=== PATIENT | male | born 1980 | race Caucasian/White ===

== ENCOUNTER 2020-01-13 14:53 | Outpatient (CLI) | payer BC, SELFPAY ==
--- NOTE | 2020-01-13 | XR_ITS ---
WS: [id number] RIGHT SHOULDER: 3 VIEW(S) TECHNIQUE: Internal and external rotation with Y view. Axillary view. HISTORY: SHOULDER ARTHRITIS COMPARISON: 11/18/2004 Prior RIGHT humeral head prosthesis placement. No lucency or fracture. Irregularity along the glenoid . Mild AC joint arthritis. No prior radiographs for comparison. XR/XR shoulder RT min 2V* [id number] IMPRESSION: Status post RIGHT humeral head prosthesis with no apparent complications. There are no prior radiographs for comparison.
== END 2020-01-13 14:54 | disposition home or self-care (01) ==
LOC: RAD 14:57
PROVIDERS: Family Provider Family Medicine; Visit Provider Orthopaedic Surgery Orthopaedic Surgery of the Spine
DX: M19.011 Primary osteoarthritis, right shoulder (principal); R20.0 Anesthesia of skin; R20.2 Paresthesia of skin
CPT/HCPCS: 73030

== ENCOUNTER → 2020-02-02 15:27 | Outpatient (BNVA) | payer BC, SELFPAY | DX: G56.21 Lesion of ulnar nerve, right upper limb (principal) | CPT/HCPCS: 95908 ==

== ENCOUNTER 2020-04-16 14:20 | Outpatient (CLI) | payer BC, SELFPAY ==
--- NOTE | 2020-04-16 14:31 | XR_ITS ---
WS: [id number] Left foot, 3 views, 04/16/2020 Clinical Data: Acute heel pain inversion injury Comparison: None. Findings: No fractures or dislocations are seen. No bone destruction or erosion is noted. The joint spaces and soft tissues are normal. The calcaneus is normal. XR/XR foot LT min 3V* [id number] Impression: Negative left foot.
== END 2020-04-16 14:21 | disposition home or self-care (01) ==
LOC: RADWPI 14:22
PROVIDERS: Family Provider Family Medicine; PCP Family Medicine; Visit Provider Podiatrist Foot & Ankle Surgery
DX: M79.672 Pain in left foot (principal)
CPT/HCPCS: 73630

== ENCOUNTER 2020-05-27 20:20 | Emergency (ER) | payer BC, SELFPAY ==
[2020-05-27 20:20] VITALS: TEMP 38.1
[2020-05-27 20:28] VITALS: BP 138/91; PULSE 99; RESP 18; O2SAT 98; BMI 28.2
--- NOTE | 2020-05-27 20:44 | XR_ITS ---
WS: [id number] Portable AP upright chest, 05/27/2020 Clinical Data: COVID+, cough, fever Comparison: Portable chest, 09/08/2015. Findings: No nodules, masses or effusions are seen. The heart is normal. The pulmonary vascularity is not increased. No pneumonia or pneumothorax is seen. There is a total right shoulder prosthesis. XR/XR chest 1V portable [id number] Impression: Negative chest.
--- NOTE | 2020-05-27 20:47 | W.ED.GENADLT ---
HPI - General Adult General: Chief complaint: General Medical Stated complaint: COVID +/COUGH/SOB Time Seen by Provider: 05/27/20 20:34 Source: patient Mode of arrival: ambulatory History of Present Illness: HPI narrative: Patient is a 40-year-old male who started feeling ill about 1 week ago. The day after he started feeling sick he got tested at his primary care provider's office for COVID-19 and he returned positive. He has been monitoring himself at home and his pulse oxygenation has been above 95. He has however been coughing continuously, has had a persistent fever of around 101, and just feels generally unwell. He wants to make sure that he does not have the pneumonia. MD complaint: Cough, Onset (ago): week(s) (1) Relieving factors: none Exacerbating factors: none Associated symptoms: Reports cough, dyspnea (Mild), fevers/chills, malaise and short of breath; Deny chest pain, confusion, diaphoresis, decreased appetite, headache(s), nausea, rash, palpitations, seizures, syncope, vomiting, weakness or other Treatments prior to arrival: NSAID Review of Systems General: Reports: 10 or more systems reviewed and unremarkable except in HPI and below Const: Reports: malaise; Denies: diaphoresis Eyes: Denies: change in vision or blurry vision ENMT: Denies: throat pain, enlarged tonsils, odynophagia, hoarseness, mouth pain or swelling of lips/tongue Card: Denies: chest pain, palpitations or syncope Resp: Reports: dyspnea (Mild) GI: Denies: nausea or vomiting : Denies: flank pain, dysuria, urinary frequency, urinary urgency or urinary hesitancy Musc: Denies: neck pain, back pain or extremity swelling Skin/Breast: Denies: rash Neuro: Denies: headache(s) or confusion Endo: Denies: polyuria, polydipsia or tired all the time Physical Exam Const: COMMON NORMALS: no acute distress, average body habitus, patient oriented x3, no limitations, healthy appearing, alert and well nourished HENMT: COMMON NORMALS: normocephalic, atraumatic and moist oral mucous membranes HEAD & SCALP: normocephalic and atraumatic Neck/C-Spine: COMMON NORMALS: no meningeal signs and no JVD Resp: COMMON NORMALS: normal respiratory effort, No retractions, No use of accessory muscles, clear to auscultation bilaterally and percussion normal AUSCULTATION: clear to auscultation bilaterally PERCUSSION: percussion normal Cardio: COMMON NORMALS: no JVD, regular rhythm, S1 normal heart sound present, S2 normal heart sound present, No gallops present (Cardio), No clicks present (Cardio), No murmurs present (Cardio), No rub (Cardio) and Peripheral pulses 2+ throughout RATE: tachycardic RHYTHM: regular rhythm HEART SOUNDS: S1 normal heart sound present and S2 normal heart sound present PERIPHERAL PULSES: Peripheral pulses 2+ throughout GI: COMMON NORMALS: Normal to inspection, nondistended, normoactive bowel sounds present, Soft to palpation, non-tender, No hepatosplenomegaly present, no masses and no bruits PALPATION: Yes Soft to palpation and Yes No hepatosplenomegaly present : COMMON NORMALS: Yes no CVA tenderness BLADDER/KIDNEY EXAM: Yes no CVA tenderness Back/Pelvis: COMMON NORMALS: no CVA tenderness Extremity: COMMON NORMALS: normal to inspection, full ROM, capillary refill normal, no calf tenderness and no pedal edema Neuro: COMMON NORMALS: patient oriented x3 SENSORIUM/ORIENTATION: Yes alert MENINGEAL SIGNS: Yes no meningeal signs Skin: COMMON NORMALS: no rashes or lesions noted, no wounds, turgor normal, no jaundice, no petechiae and no mottling GENERAL SKIN EXAM: no rashes or lesions noted and turgor normal Course Reevaluation(s): Reevaluation #1: Discussed his lab and imaging findings with him. Labs are unremarkable with an elevation of CRP the only thing striking. Chest x-ray shows may be an infiltrate in the right lower lobe. We will treat him as a case of covid pneumonia with oral azithromycin, amoxicillin, and steroid. He voiced understanding and all questions answered. Time: 21:56 Vital Signs: Vital signs: Vital Signs Temperature 100.6 F H 05/27/20 20:20 Pulse Rate 112 H 05/27/20 21:10 Respiratory Rate 18 05/27/20 21:10 Blood Pressure 139/82 05/27/20 21:10 Pulse Oximetry 97 05/27/20 21:10 MDM - General Adult MDM Narrative: Medical decision making narrative: 40-year-old male who was recently diagnosed with COVID-19. He continues to run fevers, has been coughing a lot and is mildly short of breath. Evaluation in the emergency department does not show that he needs to be hospitalized. He possibly has pneumonia on x-ray. He is discharged home on oral antibiotics, steroids, and antitussives. Medical Records: Attestation: I reviewed the patient's medical records. Lab Data: Attestation: I reviewed the patient's lab results. Labs: Lab Results 05/27/20 05/27/20 05/27/20 Range/Units 21:00 21:00 21:00 WBC 5.0 (4.0-10.0) 10^3/ uL RBC 4.64 (4.1-5.3) 10^6/u L Hgb 13.6 (11.7-16.6) g/dL Hct 40.8 L (42.0-52.0) % MCV 87.9 (80-94) fL MCH 29.3 (28.0-34.0) pg MCHC 33.3 (30.0-36.0) g/dL RDW 11.9 L (12.1-15.1) % Plt Count 220 (130-400) 10^3/c mm MPV 9.9 (7.4-10.4) fL Neut % (Auto) 72.2 % Lymph % (Auto) 20.0 % [place] % (Auto) 7.4 % Eos % (Auto) 0.2 % Baso % (Auto) 0.0 % Neut # (Auto) 3.62 (1.8-7.7) 10^3/u L Lymph # (Auto) 1.0 (0.8-4.8) 10^3/u L [place] # (Auto) 0.4 (0.2-0.9) 10^3/u L Eos # (Auto) 0.0 (0.0-0.8) 10^3/u L Baso # (Auto) 0.0 (0.0-0.1) 10^3/u L Nucleated RBC % (a uto) 0 % Nucleated RBCs # 0.0 /100WBC D-Dimer 0.34 (0-0.59) ug/mIFE U Sodium 141 (136-145) mmol/L Potassium 3.5 (3.5-5.1) mmol/L Chloride 104 (98-107) mmol/L Carbon Dioxide 25 (22-29) mmol/L Anion Gap 15.5 (5-19) BUN 12 (6-20) mg/dL Creatinine 0.8 (0.7-1.2) mg/dL GFR Calculation 107.1 (90-130) mL/min Glucose 106 (65-115) mg/dL Calculated Osmolal ity 292 (285-295) mOsm/k g Lactate (0.5-2.2) mmol/L Calcium 9.0 (8.5-10.5) mg/dL Total Bilirubin 0.3 (0.15-1.2) mg/dL AST 19 (0-40) U/L ALT 21 (0-41) U/L Alkaline Phosphata se 78 (40-130) IU/L C-Reactive Protein 40.4 H (0.0-4.9) mg/L Total Protein 7.5 (6.6-8.7) g/dL Albumin 4.4 (3.5-5.2) g/dL Globulin 3.1 (1.3-4.6) g/dL 05/27/20 Range/Units 21:00 WBC (4.0-10.0) 10^3/ uL RBC (4.1-5.3) 10^6/u L Hgb (11.7-16.6) g/dL Hct (42.0-52.0) % MCV (80-94) fL MCH (28.0-34.0) pg MCHC (30.0-36.0) g/dL RDW (12.1-15.1) % Plt Count (130-400) 10^3/c mm MPV (7.4-10.4) fL Neut % (Auto) % Lymph % (Auto) % [place] % (Auto) % Eos % (Auto) % Baso % (Auto) % Neut # (Auto) (1.8-7.7) 10^3/u L Lymph # (Auto) (0.8-4.8) 10^3/u L [place] # (Auto) (0.2-0.9) 10^3/u L Eos # (Auto) (0.0-0.8) 10^3/u L Baso # (Auto) (0.0-0.1) 10^3/u L Nucleated RBC % (a uto) % Nucleated RBCs # /100WBC D-Dimer (0-0.59) ug/mIFE U Sodium (136-145) mmol/L Potassium (3.5-5.1) mmol/L Chloride (98-107) mmol/L Carbon Dioxide (22-29) mmol/L Anion Gap (5-19) BUN (6-20) mg/dL Creatinine (0.7-1.2) mg/dL GFR Calculation (90-130) mL/min Glucose (65-115) mg/dL Calculated Osmolal ity (285-295) mOsm/k g Lactate 0.9 (0.5-2.2) mmol/L Calcium (8.5-10.5) mg/dL Total Bilirubin (0.15-1.2) mg/dL AST (0-40) U/L ALT (0-41) U/L Alkaline Phosphata se (40-130) IU/L C-Reactive Protein (0.0-4.9) mg/L Total Protein (6.6-8.7) g/dL Albumin (3.5-5.2) g/dL Globulin (1.3-4.6) g/dL Discharge Plan Discharge Patient Disposition: Home Clinical Impression: Pneumonia due to 2019-nCoV Condition: Stable Prescriptions: New azithromycin 250 mg tablet See Rx Instructions .ROUTE .COMPLEX Qty: 6 RF: 0 amoxicillin 500 mg tablet 1,000 mg PO TID 7 Days Qty: 42 RF: 0 dexamethasone 6 mg tablet 6 mg PO DAILY Qty: 10 RF: 0 promethazine-codeine 6.25-10 mg/5 mL syrup 5 ml PO Q6H PRN (Reason: cough) Qty: 473 RF: 0 Continued omeprazole 40 mg capsule,delayed release(DR/EC) 40 mg PO DAILY RF: 0 Flonase Allergy Relief 50 mcg/actuation [place],Suspension 1 spray INTRANASAL DAILY RF: 0 Claritin 10 mg Tablet 10 mg PO DAILY PRN (Reason: ALLERGIES) RF: 0 Discharge Orders: Discharge Order (Routine); Ordered 05/27/20 Ordered By: Nori Andrade Referrals: Edwni Estevez MD [Primary Care Provider] - 1-3 days Discharge Diet: Usual diet Discharge Activity: Increase activity as tolerated Patient Instructions: Viral Pneumonia (ED) Activity Restrictions/Additional Instructions: Return for any new or worsening symptoms. Follow-up with your primary care provider within 3 days. Take the medications as prescribed. Coding Level of Care Code ED [employer]ician for Chg Fwd Exam Comprehensive
[2020-05-27 21:10] VITALS: BP 139/82; PULSE 112; RESP 18; O2SAT 97
[2020-05-27] MEDS: acetaminophen 325 mg Tablet 650 MG PO (21:22)
[2020-05-27 21:37] LABS: D Dimer 0.34 ug/mIFEU (0-0.59)
[2020-05-27 21:38] LABS: Eosinophils % 0.2 %; Hematocrit 40.8 % (42.0-52.0); Hemoglobin 13.6 g/dL (11.7-16.6); Mean Corpuscular HGB Conc 33.3 g/dL (30.0-36.0); Mean Corpuscular Hemoglobin 29.3 pg (28.0-34.0); Mean Corpuscular Volume 87.9 fL (80-94); Mean Platelet Volume 9.9 fL (7.4-10.4); Monocytes # 0.4 10^3/uL (0.2-0.9); Monocytes % 7.4 %; Neutrophils # 3.62 10^3/uL (1.8-7.7); Neutrophils % 72.2 %; Nucleated Red Blood Cells % 0 %; Platelet Count 220 10^3/cmm (130-400); Red Blood Count 4.64 10^6/uL (4.1-5.3); Red Cell Distribution Width 11.9 % (12.1-15.1)
[2020-05-27 21:46] LABS: Alanine Aminotransferase 21 U/L (0-41); Albumin Level 4.4 g/dL (3.5-5.2); Alkaline Phosphatase 78 IU/L (40-130); Anion Gap 15.5 (5-19); Aspartate Amino Transferase 19 U/L (0-40); Blood Urea Nitrogen 12 mg/dL (6-20); C Reactive Protein 40.4 mg/L (0.0-4.9); Carbon Dioxide 25 mmol/L (22-29); Chloride 104 mmol/L (98-107); Globulin 3.1 g/dL (1.3-4.6); Glomerular Filtration Rate 107.1 mL/min (90-130); Glucose 106 mg/dL (65-115); Lactate (Lactic Acid level) 0.9 mmol/L (0.5-2.2); Osmolality Calculated 292 mOsm/kg (285-295); Potassium 3.5 mmol/L (3.5-5.1); Sodium 141 mmol/L (136-145); Total Bilirubin 0.3 mg/dL (0.15-1.2); Total Protein 7.5 g/dL (6.6-8.7)
[2020-05-27] MEDS: dexamethasone 4 mg Tablet 6 MG PO (22:15)
[2020-05-27] MEDS: levoFLOXacin 750 mg Tablet PO (22:15)
[2020-05-27 22:23] VITALS: BP 139/82; PULSE 112; RESP 18; O2SAT 97
== END 2020-05-27 22:24 | disposition home or self-care (01) ==
PROVIDERS: Emergency Provider Family Medicine; PCP Family Medicine
DX: U07.1 COVID-19 (principal); J12.89 Other viral pneumonia
CPT/HCPCS: 12345; 36415; 71045; 80053; 83605; 85025; 85378; 86140; 99283; J8540

== ENCOUNTER 2021-02-02 14:54 | Outpatient (CLI) | payer BC, SELFPAY ==
--- NOTE | 2021-02-02 15:15 | MR_ITS ---
WS: [id number] MRI BRAIN WITHOUT CONTRAST HISTORY: FAMILY HX OF MALIGNANT NEOPLASM OF BRAIN, [place] COMPARISON: 09/14/2008 TECHNIQUE: Diffusion imaging, multiplanar T1, T2 and FLAIR imaging obtained. No evidence for acute infarct or hemorrhage. Hazel-white matter differentiation is normal. Again noted is a linear RIGHT parietal subcortical area of decreased signal intensity which is probab ly from a prior insult or prominent perivascular space. No interval change. No significant white ce er disease. No edema. Ventricles and extra-axial spaces are normal. No inferior displacement of cerebellar tonsils. The sella turcica and pituitary gland are unremarkabl e. Posterior fossa is also unremarkable. Dural venous sinuses and tribe of [place] demonstrate no abnormality on this unenhanced studies. Paranasal sinuses: Clear. Mastoid air cells: Normal. Calvarium and scalp: Intact. MR/MR head wo con* [id number] IMPRESSION: 1. Stable MRI brain. No acute interval change. 2. No edema or mass effect. No hemorrhage.
== END 2021-02-02 14:55 | disposition home or self-care (01) ==
PROVIDERS: PCP Family Medicine; Visit Provider Family Medicine
DX: Z80.8 Family history of malignant neoplasm of other organs or systems (principal); R51.9 Headache, unspecified
CPT/HCPCS: 70551

== ENCOUNTER 2022-01-13 14:33 | Outpatient (CLI) | payer BC, SELFPAY ==
[2022-01-13 15:06] LABS: Sperm Present Sperm Not Present
== END 2022-01-13 14:34 | disposition home or self-care (01) ==
PROVIDERS: PCP Family Medicine; Visit Provider Family Medicine
DX: Z71.89 Other specified counseling (principal)
CPT/HCPCS: 89310

== ENCOUNTER → 2022-08-10 09:48 | Outpatient (BNVA) | payer BC, SELFPAY | PROVIDERS: PCP Family Medicine; Visit Provider Family Medicine | DX: J02.9 Acute pharyngitis, unspecified (principal) | CPT/HCPCS: 87400; 87880 ==

== ENCOUNTER → 2024-10-03 12:05 | Outpatient (BNVA) | payer BC, SELFPAY | PROVIDERS: PCP Family Medicine; Visit Provider Podiatrist Foot & Ankle Surgery | DX: M79.671 Pain in right foot (principal); M77.9 Enthesopathy, unspecified; M77.41 Metatarsalgia, right foot | CPT/HCPCS: 73630 ==